=== PATIENT | female | born 1960 | race Caucasian/White ===

== ENCOUNTER 2017-05-07 15:22 | Emergency (ER) | payer OTHER ==
[~2017-05-07] VITALS: Ht 157.5 cm; Wt 47.7 kg
[~2017-05-07 15:22] MED LIST: ADVAIR 250-501 EACH IH; ALBUTEROL2.5 MG/3 M IH; BACTRIM,SEPT1 TABLET PO; BUSPAR10 MG PO; COMBIVENT RESPIM4 GM IH; DOXYCYCLINE HY100 MG PO; DUONEB 2.5-0.5 M3 ML IH; INCRUSE ELLI62.5 MCG IH; LEVOFLOXACIN750 MG PO; MEDROL DOSEPAK4 MG PO; NAPROSYN500 MG PO; NICOTINE PATCH1 EAC1 TD; PREDNISONE10 MG PO; PREDNISONE20 MG PO; PROAIR HFA8.5 GM IH; REMERON15 MG PO; SPIRIVA RESPIMAT4 GM IH; SYMBICORT60 INHALAT IH; TRAMADOL HCL50 MG PO; VENTOLIN HFA18 GM IH; ZITHROMAX500 MG PO
[2017-05-07] MEDS ORDERED: DELTASONE20 M1 PO (18:18)
[2017-05-07] MEDS ORDERED: ZITHROMAX Z-PA250 MG PO (18:18)
[2017-05-07 18:30] VITALS: BP 135/67
== END 2017-05-07 18:31 | disposition home or self-care (01) ==
LOC: EME 15:22
DX: J44.1 Chronic obstructive pulmonary disease with (acute) exacerbation (principal); J44.0 Chronic obstructive pulmonary disease with (acute) lower respiratory infection; J42 Unspecified chronic bronchitis; F41.9 Anxiety disorder, unspecified; F32.9 Major depressive disorder, single episode, unspecified; F41.0 Panic disorder [episodic paroxysmal anxiety]; F17.200 Nicotine dependence, unspecified, uncomplicated; Z79.51 Long term (current) use of inhaled steroids; Z90.49 Acquired absence of other specified parts of digestive tract; Z88.0 Allergy status to penicillin
CPT/HCPCS: 71046; 94640; 99281; 99283; J1100